=== PATIENT | female | born 1995 | race Caucasian/White ===

== ENCOUNTER → 2017-09-09 | Outpatient (CLI) | payer BC ==
[~2017-09-09] MED LIST: FIORICET 50-301 EAC1 PO
[2017-09-09 17:08] LABS: APPEARANCE CLEAR/COLORLESS; RED CELL AREA COUNTED 18; RED CELL COUNT 0 /MM^3 (0-1); RED CELL DILUTION 1; WBC AREA COUNTED 18; WBC DILUTION 1; WHITE CELL COUNT 2 /MM^3 (0-5); WHITE CELL RAW COUNT 3
[2017-09-09 17:22] LABS: CSF EOSINOPHILS 0 % (0-25); MONO RAW COUNT 9; MONONUCLEAR WBC'S 100 % (50-90); POLYNUCLEAR WBC'S 0 % (0-3)
== END | disposition home or self-care (01) ==
LOC: RAD 14:36
PROVIDERS: Specialist
PROC: 009U3ZZ Drainage of Spinal Canal, Percutaneous Approach (ICD-10-PCS; principal; 2017-09-09)
DX: G93.2 Benign intracranial hypertension (principal)
CPT/HCPCS: 62270; 77003; 82945; 83916 90; 84157; 87070; 87102; 87205; 87210; 88108; 89051

== ENCOUNTER 2017-09-10 19:24 | Emergency (ER) | payer BC ==
[~2017-09-10] VITALS: Ht 180.3 cm; Wt 148.4 kg
[2017-09-10] MEDS ORDERED: FIORICET 50-301 EAC1 PO (22:06)
[2017-09-10 22:19] VITALS: BP 119/77
== END 2017-09-10 22:21 | disposition home or self-care (01) ==
LOC: EME 19:24
DX: G97.1 Other reaction to spinal and lumbar puncture (principal); R51 Headache; I10 Essential (primary) hypertension; Z88.2 Allergy status to sulfonamides
CPT/HCPCS: 99281; 99285; J1100; J1885; J2765; J7040